=== PATIENT | female | born 1975 | race Caucasian/White ===

== ENCOUNTER → 2016-03-10 | Outpatient (CLI) | payer OTHER ==
--- NOTE | 2016-03-10 09:11 | MA ---
Screening Digital Mammogram With iCAD Analysis Clinical Indications: Routine screening. The patient was diagnosed with left breast cancer the age of 25 which was treated with lumpectomy, chemotherapy and radiation. Technique: Standard cephalocaudal and mediolateral oblique projections are obtained. A skin marker is placed on left breast lumpectomy scar. This examination is processed by the iCAD computer aided dete ction system. Comparison: March 2015, January 2014, December 2012, November 2011, October 2010, September 2009, 2008. Breast density: Type B; Scattered fibroglandular densities. Findings: CAD was reviewed. Architectural change at the lumpectomy site in the left breast is stable. No masses, suspicious calcifications or other signs of malignancy are seen. There has been no signif icant change in the appearance of either breast. Impression: Benign post lumpectomy mammography, BI-RADS 2. Recommendation: Routine mammographic screening in one year as long as physical examination is negativ [facility] will send a result letter to the patient. Negative mammography should not preclude additional workup of a clinically suspicious finding. The patient's information is entered into a reminder system with a target due date for her next mammo gram.
--- NOTE | 2016-03-10 19:54 | DX ---
DEXA Bone Mineral Densitometry Clinical Indications: 40-year-old female with history of demineralization and history of left breast cancer. Follow up. Comparison: January 19, 2013. Technique: Bone Mineral Densitometry (BMD) by Dual Energy X-Ray Absorptiometry (DEXA) was performed utilizing the [employer] scanner. The lumbar spine was evaluated in the AP projection. The bilat eral hips and forearm were evaluated in the AP projection. Vertebral fracture assessment was also pe rformed. Findings: AP Lumbar Spine: The L1, L2, L3 and L4 vertebral bodies were evaluated. BMD: 1.15 gm/cm2 T-score: -0.4 SD Z-score: -0.2 SD -0.6% change from 2013. AP Left Hip: Total BMD: 0.738 gm/cm2 T-score: -2.1 SD Z-score: -1.8 SD 4.1% increase from prior exam. AP Right Hip: Total BMD: 0.71 gm/cm2 T-score: -2.4 SD Z-score: -2.1 SD 3.5% increase from prior examination. AP left Forearm, 03/03: BMD: 0.81 gm/cm2 T-score: -0.8 SD Z-score: -0.8 SD 0.4% increase. Vertebral Fracture Assessment: No significant fracture deformity. No prevertebral aortic calcificati on, significant marginal bone spurring, facet arthrosis, or intrinsic vertebral body sclerosis that would effect the accuracy of the lumbar spine BMD measurement. Conclusion: Considering the lowest measured site, the patient osteopenia is unchanged. The ten yea r FRAX risk for any major osteoporotic fracture , which excludes the risk for a wrist fracture, is 3. 2% and for a hip fracture is 3.7%. Recommendations: To prevent osteoporosis and to promote bone density, consider the following recomme ndations: 1. Pursue a regular regimen of weightbearing and muscle-strengthening exercises in order to reduce t he risk of falls and fracture (as tolerated by the patient's general medical condition). 2. Ensure that total daily dietary calcium intake is maximized. 3. Check serum hydroxy vitamin D3 (normal >30ng/ml). 4. Ensure daily intake of vitamin D is 800 international units. 5. Consider follow up DEXA scan in two years to assess the rate of bone loss in this patient. 6. Consider excluding common secondary causes of bone loss. Laboratory evaluation might include CBC , TSH, calcium, phosphorous, albumin, creatinine, alkaline phosphatase, PTH, serum, electrophoresis ( SPEP or UPEP), antitissue transglutaminase antibody levels (celiac disease), and hydroxy vitamin D3, as well as a 24-hour urine calcium.
== END ==
LOC: BRMIMAGING 08:32
PROVIDERS: ATTEND Physician Assistant Medical
DX: Z12.31 Encounter for screening mammogram for malignant neoplasm of breast (principal); Z13.820 Encounter for screening for osteoporosis; Z85.3 Personal history of malignant neoplasm of breast; M85.80 Other specified disorders of bone density and structure, unspecified site
CPT/HCPCS: G0202

== ENCOUNTER → 2017-04-02 | Outpatient (CLI) | payer OTHER | LOC: BRMIMAGING 10:25 | PROVIDERS: ATTEND Family Medicine | DX: Z12.31 Encounter for screening mammogram for malignant neoplasm of breast (principal); Z85.3 Personal history of malignant neoplasm of breast ==

== ENCOUNTER → 2018-04-05 | Outpatient (CLI) | payer OTHER | LOC: BRMIMAGING 08:37 | PROVIDERS: ATTEND Physician Assistant Medical | DX: Z12.31 Encounter for screening mammogram for malignant neoplasm of breast (principal); Z85.3 Personal history of malignant neoplasm of breast ==